=== PATIENT | female | born 1985 | race African-American/Black ===

== ENCOUNTER 2021-10-21 20:18 | Observation (INO) | payer MEDICAID ==
[~2021-10-21] VITALS: Ht 167.6 cm; Wt 81.6 kg
== END 2021-10-22 00:50 | disposition home or self-care (01) ==
LOC: 8 EST LDRP 20:18 → UNDOADMOB 20:19 → 8 EST LDRP 20:19 → PREOBSVTOIN 10-22 01:01
PROVIDERS: ADMIT Obstetrics & Gynecology; ATTEND Obstetrics & Gynecology
DX: O26.853 Spotting complicating pregnancy, third trimester (principal); O62.9 Abnormality of forces of labor, unspecified; O26.893 Other specified pregnancy related conditions, third trimester; O99.343 Other mental disorders complicating pregnancy, third trimester; F20.9 Schizophrenia, unspecified; O98.113 Syphilis complicating pregnancy, third trimester; A53.9 Syphilis, unspecified; R10.9 Unspecified abdominal pain; Z79.899 Other long term (current) drug therapy; Z3A.34 34 weeks gestation of pregnancy
CPT/HCPCS: 59025; 76805; 76818; G0378

== ENCOUNTER 2021-10-22 01:06 | Emergency (ER) | payer MEDICAID ==
[~2021-10-22] VITALS: Ht 167.6 cm; Wt 88.0 kg
[2021-10-22 02:32] LABS: BASOPHILS % 0.3 % (0.0-2.0); EOSINOPHILS % 0.7 % (0.0-5.0); HEMATOCRIT. 33.8 % (36.0-48.0); HEMOGLOBIN. 11.6 g/dL (12.0-16.0); MEAN CORPUSCULAR HEMOGLOBIN 29.1 pg (28.0-32.0); MEAN CORPUSCULAR VOLUME 84.6 fL (81.0-99.0); MEAN PLATELET VOLUME 8.6 fl (7.4-10.4); MONOCYTES % 11.5 % (2.0-8.0); NEUTROPHILS % 60.5 % (40.0-76.0); PLATELET 204 x1000/uL (130-400); RED CELL DISTRIBUTION WIDTH 13.8 % (11.6-14.6)
[2021-10-22 02:41] LABS: CHLORIDE 108 mEq/L (98-107)
[2021-10-22] MEDS ORDERED: ZIPRASIDONE HCL 20MG CAPSULE PO STA (03:07)
[2021-10-22 03:08] LABS: B-HCG QUANTITATIVE 34067 mIU/mL (<3)
[2021-10-22] MEDS ORDERED: ZIPRASIDONE MESYLATE 20MG/VIAL IM STA (03:16)
[2021-10-22] MEDS ORDERED: LORAZEPAM 2MG/ML CPJ IM STA (03:16)
[2021-10-22] MEDS: FAMOTIDINE 20MG TABLET PO SCH (03:32)
[2021-10-22 05:05] LABS: CLARITY URINE CLOUDY (CLEAR); COLOR URINE DARK YELLOW (YELLOW); KETONES URINE TRACE (NEGATIVE); LEUKOCYTE ESTERASE URINE 2+ (NEGATIVE); NITRITE URINE NEGATIVE (NEGATIVE); OCCULT BLOOD URINE NEGATIVE (NEGATIVE); PH URINE 7.5 (4.5-8.0); PROTEIN URINE 1+ (NEGATIVE); SPECIFIC GRAVITY URINE 1.026 (1.005-1.030)
[2021-10-22 05:33] LABS: *BARBITURATES SCREEN URINE NEGATIVE (NEGATIVE); *BENZODIAZEPINES SCREEN URINE NEGATIVE (NEGATIVE); *COCAINE SCREEN URINE NEGATIVE (NEGATIVE)
[2021-10-22 05:34] LABS: CANNABINOID URINE SCREEN NEGATIVE (NEGATIVE); METHADONE URINE SCREEN NEGATIVE (NEGATIVE); OPIATES URINE SCREEN NEGATIVE (NEGATIVE)
[2021-10-22 06:15] LABS: *AMPHETAMINES SCREEN URINE PRESUMTIVE POSITIVE (NEGATIVE)
[2021-10-22 06:16] LABS: PHENCYCLIDINE URINE SCREEN PRESUMTIVE POSITIVE (NEGATIVE)
[2021-10-22] MEDS ORDERED: LORAZEPAM 1MG TABLET PO ONE (18:30)
[2021-10-22] MEDS ORDERED: OLANZAPINE 10 MG/VIAL IM ONE (21:15)
[2021-10-23] MEDS: FAMOTIDINE 20MG TABLET PO SCH (02:45)
[2021-10-23] MEDS ORDERED: LORAZEPAM 1MG TABLET PO ONE (20:30)
[2021-10-24] MEDS: FAMOTIDINE 20MG TABLET PO SCH (07:59)
[2021-10-24] MEDS: CEPHALEXIN 250MG CAPSULE PO SCH ×4 (10:13→21:07)
[2021-10-24] MEDS ORDERED: ONDANSETRON HCL 4MG/2ML INJ IV ONE (20:15)
[2021-10-24] MEDS: FAMOTIDINE 20MG TABLET PO ONE ×2 (20:16→21:07)
[2021-10-24] MEDS ORDERED: ONDANSETRON 4MG ODT PO ONE (21:00)
[2021-10-25] MEDS: FAMOTIDINE 20MG TABLET PO SCH (02:45)
[2021-10-25] MEDS: CEPHALEXIN 250MG CAPSULE PO SCH ×4 (11:38→22:16)
[2021-10-25] MEDS ORDERED: ACETAMINOPHEN 325MG TABLET PO ONE (20:30)
[2021-10-25] MEDS ORDERED: ACETAMINOPHEN 500MG TABLET PO NR (21:30)
[2021-10-25] MEDS ORDERED: DIPHENHYDRAMINE 50MG CAPSULE PO ONE (22:30)
[2021-10-26] MEDS: FAMOTIDINE 20MG TABLET PO SCH (02:45)
[2021-10-26] MEDS: CEPHALEXIN 250MG CAPSULE PO SCH (10:08)
[2021-10-26 11:42] VITALS: BP 114/77
== END 2021-10-26 11:44 | disposition home or self-care (01) ==
LOC: ER 01:06
DX: O26.893 Other specified pregnancy related conditions, third trimester (principal); Z3A.30 30 weeks gestation of pregnancy; Z20.822 Contact with and (suspected) exposure to COVID-19; O99.513 Diseases of the respiratory system complicating pregnancy, third trimester; Z3A.49 Greater than 42 weeks gestation of pregnancy
CPT/HCPCS: 36415; 80053; 80305; 80307; 80329; 81003; 83690; 84702; 85025; 96372; 99281; 99291; C9803; J2060; J3486; J3490; Q0162; U0003; U0005; Q0163